=== PATIENT | female | born 1950 | race Native Hawaiian/Other Pacific Islander ===

== ENCOUNTER 2018-02-22 09:25 | Outpatient (CLI) | payer BC, OTHER | END 2018-02-22 19:24 | disposition home or self-care (01) | LOC: CT 09:25 | DX: R51 Headache (principal) ==

== ENCOUNTER 2020-12-18 12:15 | Inpatient (IN) | payer BC, OTHER ==
[~2020-12-18] VITALS: Ht 162.6 cm; Wt 78.2 kg
--- NOTE | 2020-12-18 13:32 | NUR ---
Pt. ADMITTED TO ROOM 1118 C/O COUGHING DRY AND FEELING WEAK. C/O NOT HAVING ANY ENERGY.
[2020-12-18 14:26] LABS: PLATELET COUNT 140 K/uL (152-353)
[2020-12-18 14:58] LABS: POTASSIUM 3.7 mmol/L (3.6-5.2); SODIUM 137 mmol/L (136-145)
--- NOTE | 2020-12-18 15:01 | NUR ---
DR. TORRES HERE TO VISIT. COVID TEST POSITIVE. PaTIENT TO TRANSFER TO COVID UNIT.
[2020-12-18 19:20] VITALS: BP 144/67; TEMP 100; Ht 162.6 cm; Wt 78.2 kg
[2020-12-18 20:00] VITALS: BP 123/57; TEMP 99.9
[2020-12-18] MEDS ORDERED: COZAAR25 MG PO (20:09)
[2020-12-19] VITALS (10 sets, daily range): BP systolic 118–174; BP diastolic 52–74; TEMP 98–100.2
--- NOTE | 2020-12-19 00:10 | NUR ---
PT SLEEPING, NO DISTRESS NOTED.
--- NOTE | 2020-12-19 06:07 | NUR ---
PT C/O HEADACHE. TYLENOL 1,000MG GIVEN PO. PT HAD UNEVENTFUL NIGHT. DENIES SHORTNESS OF BREATH.
[2020-12-19 06:13] LABS: POTASSIUM 3.6 mmol/L (3.6-5.2)
[2020-12-19 06:23] LABS: PLATELET COUNT 124 K/uL (152-353)
--- NOTE | 2020-12-19 16:35 | NUR ---
DR.FORDHAM CHUNG ON PATIENT.
--- NOTE | 2020-12-19 22:35 | NUR ---
PLASMA INFUSING AT THIS TIME. PT IS TOLERATING WELL. NO DISTRESS NOTED.
[2020-12-20 01:00] VITALS: BP 146/62; TEMP 98.3
--- NOTE | 2020-12-20 01:12 | NUR ---
0100: 1 HR POST TRANSFUSION VITAL SIGNS TAKEN. PT RESTING WELL. NO COMPLAINTS
[2020-12-20 04:00] VITALS: BP 168/72; TEMP 98.1
[2020-12-20 05:42] LABS: PLATELET COUNT 138 K/uL (152-353)
[2020-12-20 06:04] LABS: POTASSIUM 3.4 mmol/L (3.6-5.2)
[2020-12-20 08:00] VITALS: BP 170/70; TEMP 98.5
--- NOTE | 2020-12-20 18:22 | NUR ---
PT DC INSTRUCTIONS GIVEN AND EXPLAINED, PT VERBALIZED UNDERSTANDING, NEW MEDICATIONS CALLED INTO PHARMACY, FOLLOWUP APPT MADE WITH DR. TORRES ON 12/22/20 AT 1100, PT INSTRUCTED TO CONTINUE USING IS AT HOME AND INHALERS NEEDED, IV REMOVED WITH CATHETER INTACT, PT DC VIA WHEELCHAIR TO PRIVATE VEHICLE, NAD NOTED
== END 2020-12-20 18:20 | disposition home or self-care (01) | DRG 195 ==
LOC: MED/SURG 12:15
PROVIDERS: ADMIT Family Medicine; ATTEND Family Medicine
PROC: 30233R1 Transfusion of Nonautologous Platelets into Peripheral Vein, Percutaneous Approach (ICD-10-PCS; principal; 2020-12-18)
DX: J12.82 Pneumonia due to coronavirus disease 2019 (principal); I10 Essential (primary) hypertension; R05 Cough; E87.8 Other disorders of electrolyte and fluid balance, not elsewhere classified
CPT/HCPCS: 36415; 36430; 80053; 81000; 82550; 82728; 83735; 84100; 84484; 85027; 85379; 86140; 86900; 86901; 87040; 87070; 87077; 87186; 87205; 87502; 87635; 93005; 94667; 94668; 94760; 96365; 96366; 96367; 96372; 96375; J0456; J0696; J1650; P9017; U0003

== ENCOUNTER 2021-07-10 17:03 | Emergency (ER) | payer BC, OTHER ==
[~2021-07-10] VITALS: Ht 162.6 cm; Wt 70.3 kg
[2021-07-10 17:03] VITALS: TEMP 98.5
[~2021-07-10 17:03] MED LIST: COZAAR25 MG PO
[2021-07-10 18:00] VITALS: BP 154/56
== END 2021-07-10 18:22 | disposition home or self-care (01) ==
LOC: ED 17:03
PROC: 0HQGXZZ Repair Left Hand Skin, External Approach (ICD-10-PCS; principal; 2021-07-10)
DX: S61.218A Laceration without foreign body of other finger without damage to nail, initial encounter (principal); W27.8XXA Contact with other nonpowered hand tool, initial encounter; Y93.89 Activity, other specified; Y92.89 Other specified places as the place of occurrence of the external cause; Y99.8 Other external cause status
CPT/HCPCS: 90471; 90715; 96372; 99283; J0690; J1885; J2001; J7040

== ENCOUNTER 2021-07-24 09:29 | Emergency (ER) | payer BC, OTHER ==
[~2021-07-24] VITALS: Ht 162.6 cm; Wt 70.3 kg
[2021-07-24 09:41] VITALS: BP 162/67; TEMP 98
== END 2021-07-24 10:24 | disposition home or self-care (01) ==
LOC: ED 09:29
DX: Z51.89 Encounter for other specified aftercare (principal)
CPT/HCPCS: J0696

== ENCOUNTER 2022-04-24 08:55 | Emergency (ER) | payer BC ==
[~2022-04-24] VITALS: Ht 162.6 cm; Wt 70.3 kg
[2022-04-24 09:39] LABS: PLATELET COUNT 159 K/uL (152-353)
[2022-04-24 09:51] LABS: POTASSIUM 3.8 mmol/L (3.6-5.2)
[2022-04-24 11:48] VITALS: BP 155/66; TEMP 98.9
== END 2022-04-24 12:00 | disposition home or self-care (01) ==
LOC: ED 08:55
PROVIDERS: Emergency Medicine Emergency Medical Services
DX: I10 Essential (primary) hypertension (principal); J32.3 Chronic sphenoidal sinusitis
CPT/HCPCS: 80048; 83735; 84484; 85027; 93005; 96360; 96361; 96365; 96375; 99284; J0360; J0696